=== PATIENT | female | born 1955 | race Caucasian/White ===

== ENCOUNTER 2019-05-21 07:47 | Day surgery (SDC) | payer OTHER, BC ==
[~2019-05-21] VITALS: Ht 160 cm; Wt 56.7 kg
[2019-05-21 08:19] VITALS: BP 128/74
[2019-05-21 11:54] VITALS: BP 108/64
== END 2019-05-21 11:25 | disposition home or self-care (01) ==
LOC: DS 07:47 → GI 09:00 → OR 10:00 → GI 10:00 → DS 11:25
DX: Z12.11 Encounter for screening for malignant neoplasm of colon (principal); K63.89 Other specified diseases of intestine; Z90.710 Acquired absence of both cervix and uterus
CPT/HCPCS: 45378; J1200; J1610; J2250; J2310; J3010; J3490